=== PATIENT | male | born 1975 | race Caucasian/White ===

== ENCOUNTER 2017-06-28 02:55 | Emergency (ER) | payer SELFPAY ==
[~2017-06-28] VITALS: Ht 170.1 cm; Wt 74.8 kg
[~2017-06-28 02:55] MED LIST: CYCLOBENZAPRINE10 MG PO; HYDROCODONE BIT1 T11 PO; MEDROL DOSEPAK4 MG PO
== END 2017-06-28 04:28 | disposition home or self-care (01) ==
LOC: ED 02:55
DX: S61.411A Laceration without foreign body of right hand, initial encounter (principal); F10.929 Alcohol use, unspecified with intoxication, unspecified; W45.8XXA Other foreign body or object entering through skin, initial encounter; Y93.89 Activity, other specified; Y92.89 Other specified places as the place of occurrence of the external cause; Y99.8 Other external cause status

== ENCOUNTER 2017-09-06 15:41 | Emergency (ER) | payer OTHER ==
[~2017-09-06] VITALS: Ht 170.1 cm; Wt 72.6 kg
[2017-09-06] MEDS ORDERED: TOBREX OPHTH O3.5 GM T (15:55)
== END 2017-09-06 16:11 | disposition home or self-care (01) ==
LOC: ED 15:41
DX: H10.33 Unspecified acute conjunctivitis, bilateral (principal); F17.200 Nicotine dependence, unspecified, uncomplicated

== ENCOUNTER 2017-09-21 15:37 | Emergency (ER) | payer OTHER ==
[~2017-09-21] VITALS: Ht 170.1 cm; Wt 72.6 kg
[~2017-09-21 15:37] MED LIST changes: +TOBREX OPHTH O3.5 GM T
[2017-09-21] MEDS ORDERED: CYCLOBENZAPRINE5 M3 PO (17:57)
[2017-09-21] MEDS ORDERED: Motrin,Rufen800 MG PO (17:57)
== END 2017-09-21 18:12 | disposition home or self-care (01) ==
LOC: ED 15:37
DX: S46.912A Strain of unspecified muscle, fascia and tendon at shoulder and upper arm level, left arm, initial encounter (principal); F17.200 Nicotine dependence, unspecified, uncomplicated; Z98.890 Other specified postprocedural states; W01.0XXA Fall on same level from slipping, tripping and stumbling without subsequent striking against object, initial encounter; Y93.89 Activity, other specified; Y92.89 Other specified places as the place of occurrence of the external cause; Y99.9 Unspecified external cause status

== ENCOUNTER 2018-07-23 14:14 | Emergency (ER) | payer SELFPAY ==
[~2018-07-23] VITALS: Ht 170.1 cm; Wt 52.2 kg
[~2018-07-23 14:14] MED LIST changes: +CYCLOBENZAPRINE5 M3 PO; +Motrin,Rufen800 MG PO
[2018-07-23] MEDS ORDERED: ZOFRAN4 MG PO (14:28)
[2018-07-23] MEDS ORDERED: KEFLEX500 M1 PO (14:28)
== END 2018-07-23 15:47 ==
LOC: ED 14:14
DX: S01.01XA Laceration without foreign body of scalp, initial encounter (principal); R03.0 Elevated blood-pressure reading, without diagnosis of hypertension; W01.198A Fall on same level from slipping, tripping and stumbling with subsequent striking against other object, initial encounter; Y93.89 Activity, other specified; Y92.89 Other specified places as the place of occurrence of the external cause; Y99.8 Other external cause status

== ENCOUNTER 2018-07-30 11:57 | Emergency (ER) | payer SELFPAY ==
[~2018-07-30] VITALS: Ht 170.1 cm; Wt 68.0 kg
[~2018-07-30 11:57] MED LIST changes: +KEFLEX500 M1 PO; +ZOFRAN4 MG PO
== END 2018-07-30 12:23 | disposition home or self-care (01) ==
LOC: ED 11:57
DX: S01.81XD Laceration without foreign body of other part of head, subsequent encounter (principal); Z79.1 Long term (current) use of non-steroidal anti-inflammatories (NSAID); W19.XXXD Unspecified fall, subsequent encounter

== ENCOUNTER 2018-09-17 14:17 | Emergency (ER) | payer SELFPAY ==
[~2018-09-17] VITALS: Wt 81.6 kg
--- NOTE | ~2018-09-17 | EKG ---
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
--- NOTE | ~2018-09-17 | EKG ---
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
[2018-09-17 14:40] LABS: BASO # 0.1 10*3/uL (0.0-0.1); BASO % 0.9 % (0.0-1.0); EOS # 0.2 10*3/uL (0.0-0.4); EOS % 1.9 % (1.0-4.0); HEMATOCRIT 45.9 % (42.0-52.0); HEMOGLOBIN 15.7 g/dl (14.0-18.0); LYMPH # 3.5 10*3/uL (1.3-4.4); LYMPH % 40.8 % (27.0-41.0); MEAN CORPUSCULAR HGB 32.8 pg (27.0-31.0); MEAN CORPUSCULAR HGB CONC 34.2 g/dl (33.0-37.0); MEAN PLATELET VOLUME 8.9 fl (9.6-12.3); MONO # 0.7 10*3/uL (0.1-1.0); MONO % 8.2 % (3.0-9.0); NEUT % 47.5 % (47.0-73.0); PLATELET COUNT AUTOMATED 284 10*3/uL (130-400); RED BLOOD COUNT 4.78 10*6/uL (4.50-5.90); WHITE BLOOD COUNT 8.5 10*3/uL (4.8-10.8)
[2018-09-17 14:57] LABS: ACT PARTIAL THROMBO TIME 22.9 SECONDS (20.8-31.5); INTERNATIONAL NORM RATIO 0.9 (2.0-3.5)
[2018-09-17 15:02] LABS: ALBUMIN 3.3 gm/dl (3.1-4.5); ALKALINE PHOSPHATASE 99 U/L (45-117); BUN 8 mg/dl (7-24); CHLORIDE 108 mmol/L (98-107); CREATININE 1.01 mg/dL (0.70-1.30); POTASSIUM 3.9 mmol/L (3.5-5.1); SGOT/AST 54 IU/L (3-35); SGPT/ALT 46 U/L (12-78); SODIUM 144 mmol/L (136-145); TOTAL PROTEIN 6.9 gm/dL (6.4-8.2)
[2018-09-17 15:06] LABS: TROPONIN I < 0.015 ng/ml (<0.045)
[2018-09-17 15:33] LABS: LIPASE 4112 U/L (73-393)
[2018-09-17 16:33] LABS: BILIRUBIN NEGATIVE (NEGATIVE); BLOOD 1+ (NEGATIVE); CLARITY CLEAR (CLEAR); COLOR YELLOW (YELLOW); GLUCOSE NEGATIVE (NEGATIVE); KETONE NEGATIVE (NEGATIVE); LEUKO ESTERASE NEGATIVE (NEGATIVE); NITRITE NEGATIVE (NEGATIVE); SPECIFIC GRAVITY 1.015 (1.005-1.030); UROBILINOGEN 0.2 E.U./dl (0.2-1.0)
[2018-09-17 16:41] LABS: URINE AMPHETAMINES < 1000 (1000ng/ml); URINE BARBITURATES < 200 (200ng/ml); URINE BENZODIAZEPINES < 200 (200ng/ml); URINE CANNABINOIDS (THC) < 50 (50ng/ml); URINE COCAINE < 300 (300ng/ml); URINE METHADONE < 300 (300ng/ml); URINE OPIATES < 300 (300ng/ml)
[2018-09-17 16:43] LABS: BACTERIA 2+; EPITHELIAL CELLS 0-2; MUCOUS TRACE; WBC 0-2 wbc/hpf (0-5)
[2018-09-17 16:49] LABS: URINE PHENCYCLIDINE < 25 (25ng/ml)
== END 2018-09-17 17:45 | disposition home or self-care (01) ==
LOC: ED 14:17
PROVIDERS: Emergency Medicine; Nurse Practitioner
DX: K59.00 Constipation, unspecified (principal); R74.8 Abnormal levels of other serum enzymes; R10.31 Right lower quadrant pain; R10.32 Left lower quadrant pain; Z98.890 Other specified postprocedural states; Y90.8 Blood alcohol level of 240 mg/100 ml or more

== ENCOUNTER 2018-09-18 08:25 | Inpatient (IN) | payer MEDICAID ==
[~2018-09-18] VITALS: Ht 170.2 cm; Wt 75.0 kg
[2018-09-18] VITALS (7 sets, daily range): BP systolic 123–158; BP diastolic 82–109
[2018-09-18 08:55] LABS: BASO # 0.1 10*3/uL (0.0-0.1); BASO % 0.4 % (0.0-1.0); EOS % 0.2 % (1.0-4.0); HEMATOCRIT 46.2 % (42.0-52.0); HEMOGLOBIN 15.7 g/dl (14.0-18.0); LYMPH # 1.9 10*3/uL (1.3-4.4); LYMPH % 14.1 % (27.0-41.0); MEAN CELL VOLUME 96.3 fl (80.0-94.0); MEAN CORPUSCULAR HGB 32.7 pg (27.0-31.0); MEAN PLATELET VOLUME 8.7 fl (9.6-12.3); MONO # 0.9 10*3/uL (0.1-1.0); MONO % 6.8 % (3.0-9.0); NEUT # 10.3 10*3/uL (2.3-7.9); PLATELET COUNT AUTOMATED 274 10*3/uL (130-400); RED CELL DISTRI WIDTH 14.2 % (0-14.5); WHITE BLOOD COUNT 13.2 10*3/uL (4.8-10.8)
[2018-09-18 09:10] LABS: ALBUMIN 3.3 gm/dl (3.1-4.5); ALKALINE PHOSPHATASE 81 U/L (45-117); BUN 7 mg/dl (7-24); CHLORIDE 105 mmol/L (98-107); CREATININE 0.87 mg/dL (0.70-1.30); POTASSIUM 3.8 mmol/L (3.5-5.1); SGOT/AST 39 IU/L (3-35); SGPT/ALT 42 U/L (12-78); SODIUM 140 mmol/L (136-145); TOTAL PROTEIN 6.8 gm/dL (6.4-8.2)
[2018-09-18 09:12] LABS: LIPASE 2938 U/L (73-393)
--- NOTE | 2018-09-18 10:23 | NUR ---
A 42, admitted to , under the services of DEONTE Wong DO with a diagnosis of PANCREATITS. Chief complaint is ABDOMINAL PAIN. Patient arrived via stretcher from ER. Monitor applied. Initial assessment completed. Vital signs taken and recorded. DEONTE WONG DO notified of admission to the unit. Orders received. See assessment for past medical history, medications and allergies. Patient and/or family oriented to unit. [facility] visitation policy reviewed. Clothing/patient valuable form completed. JUANIS YIP
--- NOTE | 2018-09-18 11:27 | NUR ---
DILAUDID 1MG IV GIVEN PER PATIENT REQUEST FOR ABDOMINAL PAIN RATING A 10/10,
--- NOTE | 2018-09-18 13:29 | NUR ---
MORPHINE 2MG IV GIVEN FOR ABDOMINAL PAIN RATING A 10/10 ON PAINSCALE.
--- NOTE | 2018-09-18 17:26 | NUR ---
MORPHINE 2MG IV GIVEN PER PATIENT REQUEST FOR 10/10 ABDOMINAL PAIN.
--- NOTE | 2018-09-18 19:40 | NUR ---
NOTIFIED DR LUI OF PATIENTS ELEVATED BP 150/94 AND CONTINUED PAIN DESPITE IV MORPHINE. ORDERS FOR 1 MG DILAUDID NOW.
--- NOTE | 2018-09-18 20:26 | NUR ---
AWAKE/ALERT FOR SHIFT ASSESSMENT. RESPIRATIONS EASY/REG ON RA. C/O ABDOMINAL PAIN RATED 10/10. MEDICATED WITH 1X DOSE DILAUDID ORDERED. C/O NASUEA, MEDICATED WITH PRN ZOFRAN ORDERED. PLEASANT AND COOPERATIVE WITH CARE. GF AT BEDSIDE. IV FLUIDS MAINTAINED PER ORDER. BED IN LOW POSITION, WHEELS LOCKED, CALL LIGHT IN REACH
--- NOTE | 2018-09-18 22:08 | NUR ---
PATIENT MEDICATD WITH PRN MORPHINE ORDERD FOR C/O ABDOMINAL PAIN RATED 9/10. STATES EARLIER DILAUDID HELPED TAKE THE EDGE OFF HIS PAIN AND HE WAS ABLE TO SLEEP FOR A LITTLE BIT.
--- NOTE | 2018-09-18 23:26 | NUR ---
PATIENT SLEEPING. NO S/S OF DISTRESS NOTED. CALL LIGGHT IN REACH
[2018-09-19] VITALS: BP 146/89
--- NOTE | 2018-09-19 02:13 | NUR ---
PATIENT MEDICATED WITH PRN MORPHINE ORDERD FOR C/O ABDOMINAL PAIN RATED 9/10
--- NOTE | 2018-09-19 03:03 | NUR ---
SLEEPING. NO S/S OF DISTRESS NOTED. CALL LIGHT IN REACH
--- NOTE | 2018-09-19 06:10 | NUR ---
PATIENT MEDICATED WITH PRN MORPHINE ORDERED FOR C/O ABDOMINAL PAIN RATED 9/10
[2018-09-19 06:19] LABS: BASO % 0.1 % (0.0-1.0); EOS % 0.1 % (1.0-4.0); HEMATOCRIT 47.4 % (42.0-52.0); HEMOGLOBIN 15.7 g/dl (14.0-18.0); LYMPH # 1.1 10*3/uL (1.3-4.4); LYMPH % 7.8 % (27.0-41.0); MEAN CELL VOLUME 99.2 fl (80.0-94.0); MEAN CORPUSCULAR HGB 32.8 pg (27.0-31.0); MEAN CORPUSCULAR HGB CONC 33.1 g/dl (33.0-37.0); MONO # 0.5 10*3/uL (0.1-1.0); MONO % 3.8 % (3.0-9.0); NEUT # 12.4 10*3/uL (2.3-7.9); NEUT % 87.8 % (47.0-73.0); PLATELET COUNT AUTOMATED 238 10*3/uL (130-400); RED BLOOD COUNT 4.78 10*6/uL (4.50-5.90); RED CELL DISTRI WIDTH 14.1 % (0-14.5); WHITE BLOOD COUNT 14.1 10*3/uL (4.8-10.8)
[2018-09-19 06:41] LABS: ALBUMIN 3.1 gm/dl (3.1-4.5); ALKALINE PHOSPHATASE 97 U/L (45-117); BUN 10 mg/dl (7-24); CHLORIDE 105 mmol/L (98-107); CHOLESTEROL 114 mg/dL (<200); CREATININE 1.02 mg/dL (0.70-1.30); FREE T4 0.79 ng/dl (0.76-1.46); PHOSPHOROUS 2.1 mg/dL (2.5-4.9); SGOT/AST 31 IU/L (3-35); SGPT/ALT 32 U/L (12-78); SODIUM 139 mmol/L (136-145); TOTAL PROTEIN 6.8 gm/dL (6.4-8.2); TRIGLYCERIDES 63 mg/dl (<150); VLDL CHOLESTEROL 13 mg/dL (6-40)
[2018-09-19 06:46] LABS: HDL CHOLESTEROL 65 mg/dl (40-60); LDL CHOLESTEROL 36 mg/dL (9-159); LIPASE 6208 U/L (73-393); POTASSIUM 5.1 mmol/L (3.5-5.1)
[2018-09-19 07:51] LABS: VITAMIN D, 25-HYDROXY 12.2 ng/mL (30-100)
[2018-09-19 08:00] VITALS: BP 140/88
--- NOTE | 2018-09-19 09:00 | NUR ---
Certified Juvenile Probation Officer in to talk to patient. Patient states lives at home with . There are few steps in the home. Physician: none Pharmacy: [facility] Home health services: none Patient's level of ADLs: INDEPENDENT Patient has working utilities: all working DME: none Follow-up physician's appointment after d/c: will be made by hospitalist nurse director upon discharge Does patient want to access PORTAL?: no Discharge plan discussed with patient, family present, patient lives at home with family, states he is independent in adls and ambulation, patient states he will be transferred to [facility] sometime today. case management will follow for any needs. YCNDEE MAYES
--- NOTE | 2018-09-19 10:09 | NUR ---
PATIENT MEDICATED WITH MORPHINE AT THIS TIME FOR COMPLAINTS OF ABDOMEN PAIN. PATIENT RATES HIS PAIN A 10/10 AT THIS TIME. WILL CONTINUE TO MONITOR PATIENT.
[2018-09-19 12:00] VITALS: BP 143/92
--- NOTE | 2018-09-19 12:57 | NUR ---
NURSE TO NURSE REPORT GIVEN TO IAN VILLEGAS AT THIS TIME. NO CONCERNS AT THIS TIME. AWARE OF PATIENTS HAND FORMER HELPER TIME AT 1330.
--- NOTE | 2018-09-19 13:28 | NUR ---
SPOKE WITH DOROTHY KENT, ORDERED A ONE TIME DOSE OF MORPHINE FOR PATIENT BEFORE THE PATIENT IS TRANSFERRED TO [facility].
--- NOTE | 2018-09-19 15:11 | NUR ---
AMBULANCE HERE TO TRANSFER PATIENT TO [facility] AT THIS TIME. REPORT GIVEN TO EMT. ALL BELONGINGS WITH PATIENT AT THIS TIME. FAMILY AWARE OF PATIENT BEING TRANSFERRED AT THIS TIME. NO QUESTIONS OR CONCERNS STATED FROM PATIENT AT THIS TIME.
== END 2018-09-19 15:29 | disposition short-term general hospital (02) | DRG 440 ==
LOC: ED 08:25 → EDHOLD 09:47 → 4E 10:02
PROVIDERS: Emergency Medicine; Registered Nurse; ADMIT Internal Medicine
DX: K85.90 Acute pancreatitis without necrosis or infection, unspecified (principal); F10.10 Alcohol abuse, uncomplicated; R73.9 Hyperglycemia, unspecified; R74.0 Nonspecific elevation of levels of transaminase and lactic acid dehydrogenase [LDH]; R03.0 Elevated blood-pressure reading, without diagnosis of hypertension; Z72.0 Tobacco use; Z82.49 Family history of ischemic heart disease and other diseases of the circulatory system

== ENCOUNTER 2020-01-20 19:50 | Emergency (ER) | payer OTHER ==
[~2020-01-20] VITALS: Ht 177.8 cm; Wt 77.1 kg
[2020-01-20 20:24] LABS: CLARITY SL CLOUDY (CLEAR); COLOR STRAW (YELLOW)
[2020-01-20 20:27] LABS: BILIRUBIN NEGATIVE (NEGATIVE); BLOOD 1+ (NEGATIVE); GLUCOSE NEGATIVE (NEGATIVE); KETONE NEGATIVE (NEGATIVE); SPECIFIC GRAVITY 1.005 (1.005-1.030)
[2020-01-20 20:28] LABS: LEUKO ESTERASE TRACE (NEGATIVE); NITRITE NEGATIVE (NEGATIVE); UROBILINOGEN 0.2 E.U./dl (0.2-1.0)
--- NOTE | 2020-01-20 20:30 | NUR ---
PATIENT PLACED ON VENT AC20, 550, 100%O2,+5PEEP.NO COMPS DURING INTUBATION. CO2 COLOR CHANGE. WILL CONTINUE TO MONITOR
[2020-01-20 20:32] LABS: URINE AMPHETAMINES > 1000 (1000ng/ml); URINE BARBITURATES < 200 (200ng/ml); URINE BENZODIAZEPINES < 200 (200ng/ml); URINE CANNABINOIDS (THC) > 50 (50ng/ml); URINE COCAINE > 300 (300ng/ml); URINE METHADONE < 300 (300ng/ml); URINE OPIATES < 300 (300ng/ml)
[2020-01-20 20:35] LABS: BACTERIA 2+; EPITHELIAL CELLS 21-30; WBC 16-20 wbc/hpf (0-5)
[2020-01-20 20:36] LABS: URINE PHENCYCLIDINE < 25 (25ng/ml)
[2020-01-20 21:05] LABS: HEMATOCRIT 46.8 % (42.0-52.0); MEAN CELL VOLUME 98.5 fl (80.0-94.0); MEAN CORPUSCULAR HGB CONC 32.5 g/dl (33.0-37.0); MEAN PLATELET VOLUME 9.7 fl (9.6-12.3); PLATELET COUNT AUTOMATED 307 10*3/uL (130-400); RED BLOOD COUNT 4.75 10*6/uL (4.50-5.90); RED CELL DISTRI WIDTH 13.2 % (0-14.5); WHITE BLOOD COUNT 26.3 10*3/uL (4.8-10.8)
[2020-01-20 21:16] LABS: ACT PARTIAL THROMBO TIME 24.8 SECONDS (20.0-32.1)
[2020-01-20 21:17] LABS: ABG BASE EXCESS -17.2 mmol/L (-2.0-2.0); ARTERIAL BLOOD GAS PH 7.155 (7.35-7.45)
[2020-01-20 21:24] LABS: PLATELET SUFFICIENCY NORMAL (NORMAL); TOTAL CELLS COUNTED 100 #CELLS
[2020-01-20 21:25] LABS: BURR CELLS FEW
[2020-01-20 21:27] LABS: ALBUMIN 3.2 gm/dl (3.1-4.5); ALKALINE PHOSPHATASE 73 U/L (45-117); BUN 10 mg/dl (7-24); CHLORIDE 111 mmol/L (98-107); CREATININE 1.56 mg/dL (0.70-1.30); LIPASE 111 U/L (73-393); POTASSIUM 3.3 mmol/L (3.5-5.1); SGOT/AST 125 IU/L (3-35); SGPT/ALT 107 U/L (12-78); SODIUM 139 mmol/L (136-145); TOTAL PROTEIN 6.6 gm/dL (6.4-8.2); TROPONIN I 0.033 ng/ml (<0.045)
== END 2020-01-21 02:54 | disposition short-term general hospital (02) ==
LOC: ED 19:50
PROVIDERS: Emergency Medicine Emergency Medical Services; Physician Assistant
DX: I46.9 Cardiac arrest, cause unspecified (principal); F10.129 Alcohol abuse with intoxication, unspecified; F19.90 Other psychoactive substance use, unspecified, uncomplicated; F29 Unspecified psychosis not due to a substance or known physiological condition

== ENCOUNTER 2020-01-27 06:11 | Emergency (ER) | payer OTHER ==
[2020-01-27 07:09] LABS: HEMATOCRIT 41.2 % (42.0-52.0); MEAN CELL VOLUME 103.3 fl (80.0-94.0); MEAN CORPUSCULAR HGB 32.6 pg (27.0-31.0); MEAN CORPUSCULAR HGB CONC 31.6 g/dl (33.0-37.0); MEAN PLATELET VOLUME 9.8 fl (9.6-12.3); NUCLEATED RED BLOOD CELL 0.3 % (0.0-0.0); PLATELET COUNT AUTOMATED 264 10*3/uL (130-400); RED BLOOD COUNT 3.99 10*6/uL (4.50-5.90); RED CELL DISTRI WIDTH 13.6 % (0-14.5); WHITE BLOOD COUNT 9.1 10*3/uL (4.8-10.8)
[2020-01-27 07:16] LABS: ACT PARTIAL THROMBO TIME 28.7 SECONDS (20.0-32.1)
[2020-01-27 07:25] LABS: ALBUMIN 2.5 gm/dl (3.1-4.5); CREATININE 1.63 mg/dL (0.70-1.30); POTASSIUM 3.9 mmol/L (3.5-5.1); TOTAL PROTEIN 6.2 gm/dL (6.4-8.2)
[2020-01-27 07:28] LABS: TROPONIN I 2.98 ng/ml (<0.045)
[2020-01-27 07:30] LABS: ATYPICAL LYMPHS 3 % (0-0); TOTAL CELLS COUNTED 100 #CELLS
[2020-01-27 07:31] LABS: BURR CELLS MANY; PLATELET SUFFICIENCY NORMAL (NORMAL)
[2020-01-27 07:41] LABS: URINE AMPHETAMINES < 1000 (1000ng/ml); URINE BARBITURATES > 200 (200ng/ml); URINE BENZODIAZEPINES < 200 (200ng/ml); URINE CANNABINOIDS (THC) > 50 (50ng/ml); URINE COCAINE < 300 (300ng/ml); URINE METHADONE < 300 (300ng/ml); URINE OPIATES < 300 (300ng/ml)
[2020-01-27 07:48] LABS: URINE PHENCYCLIDINE < 25 (25ng/ml)
[2020-01-27 08:03] LABS: ABG BASE EXCESS -8.1 mmol/L (-2.0-2.0); ARTERIAL BLOOD GAS PH 7.355 (7.35-7.45)
== END 2020-01-27 09:15 | disposition short-term general hospital (02) ==
LOC: ED 06:11
PROVIDERS: Emergency Medicine; Emergency Medicine Emergency Medical Services
DX: I46.9 Cardiac arrest, cause unspecified (principal)